=== PATIENT | male | born 1960 | race Caucasian/White ===

== ENCOUNTER 2016-07-31 12:44 | Emergency (ER) | payer OTHER ==
[~2016-07-31] VITALS: Ht 172.7 cm; Wt 81.6 kg
[2016-07-31 12:49] VITALS: BP 102/64
--- NOTE | 2016-07-31 12:55 | ED HEAD/FACIAL INJ COMPLAINT ---
History of Present Illness General Chief Complaint: Laceration Procedure Stated Complaint: LAC TO HEAD, +ETOH, S/P FALL Source: patient, EMS Exam Limitations: intoxication Vital Signs & Intake/Output Vital Signs & Intake/Output Vital Signs Date Time Temp Pulse Resp B/P B/P Pulse O2 O2 Flow FiO2 Mean Ox Delivery Rate 07/31 1249 97.8 97 18 102/64 97 Room Air Room Air Allergies Coded Allergies: No Known Drug Allergies (Intermediate, NONE 07/31/16) Reconcile Medications Augmentin (Augmentin 500-125 Tablet) 500 MG-125 MG TABLET 1 TAB PO BID PRN nasal fracture Triage Note: TRIAGe: 56 Y/O MALE NATA CHOW WITH LACERATIONS TO FACE AND DRIED BLOOD TO NARES - REPORTS "SMALL FALL". Triage Nurses Notes Reviewed? yes Onset: Abrupt Severity: moderate Severity Numbers: 5 HPI: Patient is a 56-year-old male who presents emergency room for concerns of intoxication and a fall EMS state that they received a phone call for an intoxicated male with facial lacerations and cuts from a fall. Patient history is limited due to current intoxication Tetanus is unknown. Patient complains to skin abrasions to his face right elbow and right knee Past History Travel History Traveled to [place] past 21 day No Medical History Any Pertinent Medical History? none Surgical History Surgical History: non-contributory Psychosocial History What is your primary language Amharic Family History Hx Contributory? No Review of Systems Review of Systems Constitutional: Reports: no symptoms. EENTM: Reports: no symptoms. Respiratory: Reports: no symptoms. Cardiovascular: Reports: no symptoms. GI: Reports: no symptoms. Genitourinary: Reports: no symptoms. Musculoskeletal: Reports: see HPI. Skin: Reports: see HPI. Neurological/Psychological: Reports: see HPI. Hematologic/Endocrine: Reports: see HPI, bleeding. Immunologic/Allergic: Reports: no symptoms. All Other Systems: Reviewed and Negative Physical Exam Physical Exam General Appearance: no apparent distress, alert, intoxicated Cranial Nerves: normal hearing, normal speech, PERRL Comments: HEENT: Normal EENT exam, extraocular motion intact, no nystagmus. Pupils equally round and reactive to light and accommodation. Nose noted dried blood to left nares. External auditory canal and Tympanic membranes clear. Pharynx normal. No swelling or edema. Neck: Supple, no lymphadenopathy, normal range of motion without pain or tenderness Back: Nontender, no CVA tenderness. Cardiovascular: Regular rate and rhythms no murmurs rubs or gallops, normal JVP Respiratory: Chest nontender. No respiratory distress.breath sounds clear to auscultation bilaterally Abdomen: Soft, nontender nondistended, no appreciable organomegaly. Normal bowel sounds. No ascites Extremity: No edema, no calf tenderness to palpation, normal and equal pulses. Bilateral upper extremity and lower extremity myotomes dermatomes intact Noted right olecranon and superficial skin abrasion Noted right patellar superficial skin abrasion Neuro: Alert oriented x3, motor sensory normal, cranial nerves II through XII grossly intact. Skin: No appreciable rash on exposed skin, skin is warm and dry. Psych: Mood and affect is normal, memory and judgment is normal. Diagram Head: 1) Noted superficial hematoma with superficial skin abrasions no laceration Progress Differential Diagnosis: c-spine injury, facial fracture, globe injury, ICH, orbit fracture, skull fracture Plan of Care: Orders Procedure Date/time Status Regular Diet 07/31 D Active Patient after CT scan of head neck and maxillofacial was resulted shows nasal fracture. Patient's wounds were cleaned with sterile water and bacitracin was applied. No overt findings of concern for laceration or repair at this time. Patient had normal steady gait and was clinically sober upon discharge. I discussed and stressed with patient to avoid significant alcohol ingestion and which I also advised patient for inpatient evaluation of alcohol detoxification which he stated he does not want to pursue detox currently. Patient had normal steady gait It is noted to me that patient's girlfriend will picker operator patient Patient was strongly advised to follow-up with ENT and was given prescription of Augmentin. Upon discharge patient looks well no apparent distress and will comply with discharge instructions and had no questions 07/31/2016 6:13:40 PM patient still is resting comfortably at bedside waiting for a ride home 07/31/2016 6:21:18 PM nursing staff notes to me that patient at 1730 received a alcohol breathalyzer noted to be EtOH of 130 and which an hour later at this time patient is cooperative coherence and not a fall risk patient had normal steady gait and patient will be ubering home (JUAN IVAN) Diagnostic Imaging: Viewed by Me: CT Scan. Radiology Impression: SEE COMMENTS Comments: PATIENT: EDWARD RIVERA PRESENT AGE: 56 PATIENT ACCOUNT NO: [id number] : 56 LOCATION: [facility] ORDERING PHYSICIAN: JUAN HAMMER SERVICE DATE: 07/31/166612 EXAM TYPE: CAT - CT CERV SPINE WO IV CONTRAST; CT HEAD WO IV CONTRAST EXAMINATION: CT OF THE HEAD WITHOUT CONTRAST CT SCAN OF THE CERVICAL SPINE WITHOUT CONTRAST CLINICAL INFORMATION: EtOH. Head strike. Facial contusion. COMPARISON: None. TECHNIQUE: Contiguous axial imaging was performed from the skull base to vertex without intravenous administration of contrast. Coronal reformations of the head were obtained. Contiguous axial imaging of the cervical spine from the skull base to the upper thoracic inlet was performed without intravenous administration of contrast. Sagittal and coronal reformations of the cervical spine were performed. DLP: 2892.54 mGy-cm (this dose report includes the dose for the head, cervical spine and maxillofacial CT scan). FINDINGS: Evaluation is limited due to motion. CT SCAN OF THE HEAD: There is no evidence of acute intracranial hemorrhage or territorial infarction. No abnormal mass-effect or midline shift is seen. Brunner to white matter differentiation is well preserved. No extra-axial fluid collections are identified. The ventricles are normal in size. There is no abnormal attenuation within the brain parenchyma. On series 2, image 15, a small soft tissue asymmetry is seen in region of the right cavernous sinus. This is most likely related to asymmetric prominence of the soft tissues related to slight obliquity on the film and is not reproduced on additional sequences. The osseous structures and soft tissues are normal. Mild mucosal thickening is seen in the left sphenoid sinus and in the ethmoid air cells. The mastoid air cells and visualized portions of the paranasal sinuses are otherwise well-aerated. S-shaped undulation of the nasal septum is seen. CT SCAN OF THE CERVICAL SPINE: Normal alignment. No acute fracture or dislocation. Craniocervical junction and atlantoaxial articulation are intact. No prevertebral soft tissue swelling. Mild degenerative change at the atlantoaxial articulation anteriorly. IMPRESSION: Study mildly limited by motion artifact. 1. No acute intracranial pathology. 2. No acute cervical spine fracture. 3. Mild degenerative change in the atlantoaxial articulation. 4. Mild sinus disease in the left sphenoid sinus and in the ethmoid air cells. DICTATED BY: SASCHA MARINELLI MD DATE/TIME DICTATED:06/18/17 / 1400 TUNNELING MACHINE OPERATOR:LUIGI PATIENT: EDWARD RIVERA PRESENT AGE: 56 PATIENT ACCOUNT NO: [id number] : 56 LOCATION: [facility] ORDERING PHYSICIAN: JUAN HAMMER SERVICE DATE: 07/31/16 EXAM TYPE: CAT - CT MAXILLOFACIAL W/O CON EXAMINATION: CT MAXILLOFACIAL WITHOUT CONTRAST CLINICAL INFORMATION: Fall. Facial contusion. COMPARISON: None TECHNIQUE: Multidetector helical imaging was performed in the axial plane with generation of coronal and sagittal reformatted images. DLP: 2892 mGy-cm includes CT cervical spine and CT head FINDINGS: There are artifacts along the oral cavity from artificial metallic denture plate limiting evaluation of dorsal cavity. There is a right nasal bone fracture with minimal displacement. Mild soft tissue swelling is present. The left nasal bone is intact. Visualized maxillofacial bones are intact. Bilateral TM joints and the entire mandible appears intact. No fracture seen. There is mild mucoperiosteal thickening involving bilateral maxillary, bilateral, bilateral frontal and left sphenoid sinus. The ostiomeatal complex is obstructed bilaterally slightly greater on the left from mucoperiosteal thickening. Bilateral frontoethmoidal recesses appear widely patent. The nasal septum is deviated to left with a small bony spur. There is mild asymmetry of the turbinates probably part of the nasal cycle. Visualized bilateral mastoid air sinuses are well-aerated. The maxillofacial soft tissues are normal. Normal symmetry of bilateral optic globes and optic nerve is noted. Visualized bilateral parotid and submandibular glands appear unremarkable. There are numerous bilateral neck lymph nodes which are nonspecific. There is a left frontal supraorbital soft tissue swelling. IMPRESSION: Minimally displaced right nasal bone fracture with soft tissue swelling. No additional maxillofacial or mandibular fractures seen. Chronic pansinusitis with obstructed bilateral ostiomeatal complex worse on the left from mucoperiosteal thickening. Left supraorbital frontal scalp minimal soft tissue swelling. DICTATED BY: GAYLE KINCAID,EMMETT DATE/TIME DICTATED:07/31/161435 Departure Departure Disposition: HOME OR SELF CARE Condition: Stable Clinical Impression Primary Impression: Nasal bone fracture Secondary Impressions: Alcohol abuse, Epistaxis, Minor head injury, Skin abrasion Referrals: LACHELLE KINCAID,ALEXX UNDERWOOD MD,MYL (PCP/Family) Additional Instructions: As discussed apply bacitracin to the wounds for the following 4 days. If you note signs of infection redness, pain, swelling, discharge return to the emergency room. Tomorrow on Monday follow-up with ENT Dr. Keen. Begin a prescription of Augmentin as directed for the full course. please limit the use of alcohol. If symptoms worsen return to emergency room Departure Forms: Customer Survey General Discharge Information Prescriptions: Current Visit Scripts Augmentin (Augmentin 500-125 Tablet) 1 TAB PO BID PRN nasal fracture #14 TAB
--- NOTE | 2016-07-31 14:28 | CT SCAN REPORT ---
EXAMINATION: CT OF THE HEAD WITHOUT CONTRAST CT SCAN OF THE CERVICAL SPINE WITHOUT CONTRAST CLINICAL INFORMATION: EtOH. Head strike. Facial contusion. COMPARISON: None. TECHNIQUE: Contiguous axial imaging was performed from the skull base to vertex without intravenous administration of contrast. Coronal reformations of the head were obtained. Contiguous axial imaging of the cervical spine from the skull base to the upper thoracic inlet was performed without intravenous administration of contrast. Sagittal and coronal reformations of the cervical spine were performed. DLP: 2892.54 mGy-cm (this dose report includes the dose for the head, cervical spine and maxillofacial CT scan). FINDINGS: Evaluation is limited due to motion. CT SCAN OF THE HEAD: There is no evidence of acute intracranial hemorrhage or territorial infarction. No abnormal mass-effect or midline shift is seen. Brunner to white matter differentiation is well preserved. No extra-axial fluid collections are identified. The ventricles are normal in size. There is no abnormal attenuation within the brain parenchyma. On series 2, image 15, a small soft tissue asymmetry is seen in region of the right cavernous sinus. This is most likely related to asymmetric prominence of the soft tissues related to slight obliquity on the film and is not reproduced on additional sequences. The osseous structures and soft tissues are normal. Mild mucosal thickening is seen in the left sphenoid sinus and in the ethmoid air cells. The mastoid air cells and visualized portions of the paranasal sinuses are otherwise well-aerated. S-shaped undulation of the nasal septum is seen. CT SCAN OF THE CERVICAL SPINE: Normal alignment. No acute fracture or dislocation. Craniocervical junction and atlantoaxial articulation are intact. No prevertebral soft tissue swelling. Mild degenerative change at the atlantoaxial articulation anteriorly. IMPRESSION: Study mildly limited by motion artifact. 1. No acute intracranial pathology. 2. No acute cervical spine fracture. 3. Mild degenerative change in the atlantoaxial articulation. 4. Mild sinus disease in the left sphenoid sinus and in the ethmoid air cells.
--- NOTE | 2016-07-31 14:49 | CT SCAN REPORT ---
EXAMINATION: CT MAXILLOFACIAL WITHOUT CONTRAST CLINICAL INFORMATION: Fall. Facial contusion. COMPARISON: None TECHNIQUE: Multidetector helical imaging was performed in the axial plane with generation of coronal and sagittal reformatted images. DLP: 2892 mGy-cm includes CT cervical spine and CT head FINDINGS: There are artifacts along the oral cavity from artificial metallic denture plate limiting evaluation of dorsal cavity. There is a right nasal bone fracture with minimal displacement. Mild soft tissue swelling is present. The left nasal bone is intact. Visualized maxillofacial bones are intact. Bilateral TM joints and the entire mandible appears intact. No fracture seen. There is mild mucoperiosteal thickening involving bilateral maxillary, bilateral, bilateral frontal and left sphenoid sinus. The ostiomeatal complex is obstructed bilaterally slightly greater on the left from mucoperiosteal thickening. Bilateral frontoethmoidal recesses appear widely patent. The nasal septum is deviated to left with a small bony spur. There is mild asymmetry of the turbinates probably part of the nasal cycle. Visualized bilateral mastoid air sinuses are well-aerated. The maxillofacial soft tissues are normal. Normal symmetry of bilateral optic globes and optic nerve is noted. Visualized bilateral parotid and submandibular glands appear unremarkable. There are numerous bilateral neck lymph nodes which are nonspecific. There is a left frontal supraorbital soft tissue swelling. IMPRESSION: Minimally displaced right nasal bone fracture with soft tissue swelling. No additional maxillofacial or mandibular fractures seen. Chronic pansinusitis with obstructed bilateral ostiomeatal complex worse on the left from mucoperiosteal thickening. Left supraorbital frontal scalp minimal soft tissue swelling.
[2016-07-31] MEDS ORDERED: AUGMENTIN 500-1 EACH PO (15:06)
== END 2016-07-31 18:29 ==
LOC: ERH 12:44
DX: S02.2XXA Fracture of nasal bones, initial encounter for closed fracture (principal); S09.90XA Unspecified injury of head, initial encounter; S00.81XA Abrasion of other part of head, initial encounter; S50.311A Abrasion of right elbow, initial encounter; S80.211A Abrasion, right knee, initial encounter; W19.XXXA Unspecified fall, initial encounter; Y92.830 Public park as the place of occurrence of the external cause
CPT/HCPCS: 90471; 90714